=== PATIENT | male | born 1965 | race Caucasian/White ===

== ENCOUNTER 2016-03-08 18:39 | Emergency (ER) | payer OTHER ==
[~2016-03-08] VITALS: Ht 180.3 cm; Wt 113.6 kg
[2016-03-08 19:23] VITALS: BP 199/120; PULSE 72; RESP 16; O2SAT 96
--- NOTE | 2016-03-08 20:06 | ED.REPORT ---
HPI-General Illness Date of Service Mar 08, 2016 ED Provider: Ramon Wong MD Pt is a 50 year old male with a hx of DM II, diabetic neuropathy, Alcala's Palsy and shingles presenting to the ED from complaining of left hip and side pain onset in January 2016. He denies dysuria, chest pain, SOB, or a rash. He also reports dizziness and pain during intercourse which he has seen a urologist for. Pt was off Lisinopril for a few months but has been back on for about a month. Pt regularly takes insulin. Pt had a crown placed 02/22/2016 and states that the site is cell tender helper. Pt was seen in and had urine test showing ketones in his urine. Nursing Notes Stated Complaint: BLOOD SUGAR ISSUE Chief Complaint: General Complaint Nursing Notes Reviewed: Yes Allergies: Coded Allergies: prednisone (Verified Allergy, Unknown, 03/08/16) Scheduled Acyclovir (Acyclovir) 800 Mg Tab 800 MG PO 5XD General Time Seen by MD: 20:04 Chief Complaint Back pain Hx Obtained From: Patient, Spouse Arrived By: Walk-in Sudden in Onset?: No Onset Occurred: More than a week ago... (1 month) Symptom Duration: Since onset Quality: Painful Severity: Current: Moderate Severity: Maximum: Severe Recent Healthcare: No recent hospitalization, Recent doctor visit Similar Sx Previous: Yes Past Medical History Past Medical History Reported: DM II on insulin, diabetic neuropathy, Alcala's Palsy and shingles Past Surgical History denies Smoking History Unknown if Ever Smoker Ambulatory Status Independent Review of Systems Full Review of Systems Respiratory: Denies: Shortness of breath Cardiovascular: Denies: Chest pain Male: Reports Flank pain, Denies Dysuria Musculoskeletal: Reports: Joint pain (Left hip) Skin: Denies Rash Neurologic: Reports: Dizziness Complete sys rev & neg: except as marked. Physical Exam Vital Signs Vital Signs Date Time Temp Pulse Resp B/P Pulse Ox O2 Delivery O2 Flow Rate FiO2 03/08/16 22:14 36.8 69 18 158/84 97 Room Air 03/08/16 20:30 36.7 70 13 170/110 98 Room Air 03/08/16 19:23 36.6 72 16 199/120 96 Room Air Initial VS: Reviewed General/Constitutional: Well-developed, Well-nourished Head / Eyes: Atraumatic, Normocephalic, PERRL ENT: Mucous membranes moist, Conjunctiva normal, No scleral icterus Respiratory: Breath sounds normal, Clear to auscultation, No respiratory distress Skin: Warm, Dry, No cyanosis Neurologic: Alert, Oriented, Nonfocal Psychiatric: Mood/affect normal, Behavior normal, Normal thought content Cardiovascular: Heart rate NL, Regular rhythm, Heart sounds NL, No gallop, No murmurs, No rubs Abdomen: BS normoactive Back: Full range of motion Left sided CVA tenderness Interpretation & Diagnostics Lab Results Interpretation Result Diagram: 03/08/16195403/08/161954 Test 03/08/16 19:55 03/08/16 21:16 White Blood Count 6.9th/mm3 (3.8-10.1) Red Blood Count 5.41mil/mm3 (4.40-5.80) Hemoglobin 15.1g/dL (13.8-17.2) Hematocrit 43.1% (41.0-50.0) Mean Corpuscular Volume 79.7fL (81-100) Mean Corpuscular Hemoglobin 27.9pg (27.0-35.0) Mean Corpuscular Hemoglobin Concent 35.0% (32.0-37.0) Red Cell Distribution Width 12.6% (12.3-15.4) Platelet Count 179bil/L (150-400) Neutrophils (%) (Auto) 63.0% (40-74) Lymphocytes (%) (Auto) 25.3% (14-46) Monocytes (%) (Auto) 9.2% (4-12) Eosinophils (%) (Auto) 1.5% (0-5) Basophils (%) (Auto) 0.4% (0-3) Sodium Level 134mEq/L (134-144) Potassium Level 4.7mEq/L (3.5-5.2) Chloride Level 96mEq/L (97-108) Carbon Dioxide Level 24mmol/L (18-29) Blood Urea Nitrogen 12mg/dL (6-24) Creatinine 0.62mg/dL (0.76-1.27) Estimat Glomerular Filtration Rate 145mL/min (>59) Glucose Level 327mg/dL (60-99) Calcium Level 9.1mg/dL (8.5-10.1) Total Bilirubin 0.6mg/dL (0.0-1.2) Aspartate Amino Transf (AST/SGOT) 22U/L (0-50) Alanine Aminotransferase (ALT/SGPT) 22U/L (0-44) Alkaline Phosphatase 56U/L (25-150) Troponin T 0.010ug/L (0.0-0.011) Total Protein 7.1g/dL (6.4-8.4) Albumin 4.1g/dL (3.4-5.0) Ketones Negative (Negative) Urine Color Yellow (YELLOW) Urine Appearance Clear (CLEAR,HAZY) Urine pH 5.5 (5.0-8.0) Urine Specific [place] 1.025 (1.003-1.035) Urine Protein Negativemg/dL (NEG,TRACE) Urine Glucose (UA) 100mg/dL (NEGATIVE) Urine Ketones Tracemg/dL (NEGATIVE) Urine Occult Blood Negative (NEGATIVE) Urine Nitrite Negative (NEGATIVE) Urine Bilirubin Negative (NEGATIVE) Urine Urobilinogen Normalmg/dL (NORMAL) Urine Leukocyte Esterase Negative (NEGATIVE) Urine RBC 0-2/hpf (0-2) Urine WBC 0-5/hpf (0-5) Urine Epithelial Cells None/hpf (NONE-MOD) Urine Crystals None seen (NONE SEEN) Urine Bacteria Few/hpf (NONE-FEW) Urine Hyaline Casts None/lpf (NONE) Urine Granular Casts None seen (NONE SEEN) Urine Waxy Casts None seen (NONE SEEN) Urine Red Blood Cell Casts None seen (NONE SEEN) Urine White Blood Cell Casts None seen (NONE SEEN) Urine Mucus None seen (None Seen) Urine Trichomonas None seen (NONE SEEN) Urine Yeast None (NONE SEEN) Urinalysis Comment Amorphous sediment Urine Culture Reflexed Not indicated ECG Interpretation ECG Interpretation: No acute ST segment changes. Time: 20:14 Interpreted by: ED physician Normal ECG Interpretation: Normal rate (73), Normal sinus rhythm Re-Eval/Medical Decision Time of Eval: 21:50 Patient Status: Condition improved Re-Evaluation/Progress Note: BP corrected and pt feels well. Advised him to take his medications as advised. Counseled Regarding: Diagnosis, Lab results, Need for follow-up, When/why to return to ED Discharge & Departure Primary Impression: Type II diabetes mellitus, uncontrolled Additional Impressions: Left flank pain Zoster Herpes zoster complications: without complications Qualified Code: B02.9 - Zoster without complications Disposition: Home Discharge Condition All VS Reviewed: Yes Condition: Improved Patient Instructions: Herpes Zoster (ED) Additional Instructions: Emergency Department evaluation included review, examination, labs and ECG. We noted elevated blood glucose without complication. Noted elevated blood pressure which responded to blood pressure medications. There is no evidence of kidney problem causing left flank symptoms, the description of symptoms is in fact consistent with shingles and we will treat. Take your insulin and lisinopril as directed. Take acyclovir as prescribed. Follow-up with primary care later this week, return to emergency department for chest pain shortness of breath fevers frequent vomiting. Referrals: [facility] Attestation Portions of this note were transcribed by Teresa Sadler. I, Dr. Wong personally performed the history, physical exam and medical decision-making; I reviewed and confirmed the accuracy of the information in the transcribed note. Signed by : Braden Martinez, 03/08/16 and [id number]. copies to: [facility] Donald L MD Mar 08, 2016 20:06 TERESA SADLER Mar 08, 2016 20:19
[2016-03-08 20:10] LABS: BASOPHILS % (AUTO) 0.4 % (0-3); EOSINOPHILS % (AUTO) 1.5 % (0-5); MONOCYTES % (AUTO) 9.2 % (4-12); Mean Corpuscular Hemoglobin 27.9 pg (27.0-35.0); Mean Corpuscular Volume 79.7 fL (81-100); Platelet Count 179 bil/L (150-400)
[2016-03-08 20:30] VITALS: BP 170/110; PULSE 70; RESP 13; O2SAT 98
[2016-03-08] MEDS ORDERED: 0.9% Sodium Chloride 1,000 ML IV ONE (20:45)
[2016-03-08] MEDS ORDERED: Acyclovir 800 mg Tablet PO ONE (21:05)
[2016-03-08 21:41] LABS: APPEARANCE,URINE CLEAR (CLEAR,HAZY); COLOR,URINE YELLOW (YELLOW); OCCULT BLOOD,URINE NEGATIVE (NEGATIVE); PH,URINE 5.5 (5.0-8.0); UROBILINOGEN,URINE NORMAL (NORMAL)
[2016-03-08] MEDS ORDERED: ZOV800 PO (21:55)
[2016-03-08 22:14] VITALS: BP 158/84; PULSE 69; RESP 18; O2SAT 97
== END 2016-03-08 22:16 | disposition home or self-care (01) ==
LOC: SED 18:39
DX: E11.40 Type 2 diabetes mellitus with diabetic neuropathy, unspecified (principal); B02.9 Zoster without complications; R10.32 Left lower quadrant pain; G51.0 Bell's palsy; Z79.4 Long term (current) use of insulin; Z88.8 Allergy status to other drugs, medicaments and biological substances
CPT/HCPCS: 36415; 80053; 81000; 82009; 82948; 84484; 85025; 93005; 96360; 99285; J7030